=== PATIENT | female | born 1985 | race Caucasian/White ===

== ENCOUNTER 2020-06-23 17:36 | Emergency (ER) | payer OTHER, SELFPAY ==
[2020-06-23 18:53] VITALS: PULSE 74; RESP 18; TEMP 36.8; O2SAT 100; BMI 34.0
--- NOTE | 2020-06-23 19:15 | ED_ITS ---
HPI - General Adult General Chief complaint: Headache Stated complaint: no sense of taste, smell, headaches Time Seen by Provider: 06/23/20 18:22 Source: patient Mode of arrival: ambulatory History of Present Illness HPI narrative: Patient presents to ED for no sense of taste smell, body aches, and headache. Patient denies anyone else at home having similar symptoms. Patient states no coughing, chest pain, shortness of breath. Related Data Allergies Allergy/AdvReac Type Severity Reaction Status Date / Time No Known Allergies Allergy Unverified 05/02/20 18:33 Review of Systems Review of Systems: Yes all other systems are reviewed and are negative Constitutional: Constitutional: Reports body ache(s), Denies chills, Denies fever(s) and Reports headache(s) Comments: Loss of smell and loss of taste Eyes: Eyes: Reports as per HPI and Reports no additional eye complaints ENT: Reports system reviewed and no additional complaints, except as documented, Reports as per HPI and Reports headache(s) Cardiovascular: Cardiovascular: Reports as per HPI and Reports no additional cardiovascular complaints Respiratory: Respiratory: Reports as per HPI and Reports no additional respiratory complaints Gastrointestinal: Gastrointestinal: Reports as per HPI and Reports no additional gastrointestinal complaints Genitourinary: Genitourinary: Reports no additional female genitourinary complaints and Reports as per HPI Musculoskeletal: Musculoskeletal: Reports no additional musculoskeletal complaints and Reports as per HPI Neurologic: Reports system reviewed and no additional complaints, except as documented, Reports as per HPI and Reports headache(s) Psychiatric: Psychiatric: Reports no additional psychiatric complaints and Reports as per HPI [facility] Past Medical History Surgical History (Updated 06/23/20 @ 18:56 by Whitney Lyons) Hx of cholecystectomy Social History Social History Advance Directives: No Advance Directives Information Provided: Yes Physical Exam Vital Signs: Vital Signs: Last Vital Signs Temp 98.3 F 06/23/20 18:53 Pulse 74 06/23/20 18:53 Resp 18 06/23/20 18:53 Pulse Ox 100 06/23/20 18:53 Body Mass Index 34.0 Const: General: cooperative, healthy appearing, comfortable, no acute distress, well developed, alert and awake Orientation/consciousness: patient oriented x3 HENMT: Head: Yes normal to inspection and Yes No palpable skull fracture present Eyes: General: appearance normal, both eyes and all related structures Visual Gonzalez: normal visual gonzalez by confrontation Neck: Neck: Yes normal visual inspection, Yes full ROM, Yes no lymphadenopathy, Yes no meningeal signs and Yes trachea midline Chest: Chest palpation & inspection: normal inspection of the chest, normal palpation of entire chest wall and no localized rib tenderness Resp: Effort & Inspection: normal respiratory effort, able to speak in complete sentences and abnormal respiratory pattern Auscultation: clear to auscultation bilaterally, no crackles, no rales, no rhonchi and no wheezes Cardio: Jugular venous distension: no JVD Heart sounds: S1 normal heart sound present and S2 normal heart sound present GI: Inspection: Yes normal to inspection and No abdominal wall ecchymosis Palpation (GI): Soft to palpation, not firm, nontender, no guarding and not rigid : General: No CVA tenderness and Yes no CVA tenderness Back/Spine/Pelvis: Back: no CVA tenderness, No CVA tenderness and No back tenderness Skin: General skin exam: no rashes or lesions noted Neuro: General: patient oriented x3, gait normal, no meningeal signs and CN's II-XI intact bilaterally Cranial nerves: Yes CN's II-XII intact bilaterally Extrem: General: Yes normal to inspection and Yes full ROM Psych: Appearance: grossly normal and well kempt Course Course Course Narrative: History physical exam indicate viral syndrome. Patient was swabbed for COVID-19 virus. Reevaluation(s) Reevaluation #1: Patient is swabbed for the COVID-19 virus. Patient educated on self-isolation. Time: 19:21 Medical Decision Making [facility] Narrative Medical decision making narrative: COVID-19 Discharge Plan Discharge Clinical Impression: Acute viral syndrome Patient Disposition: Home, Self-Care Instructions: Viral Syndrome (ED) Additional Instructions: return to the ED immediately for any chest pain, shortness of breath, neck stiffness, photophobia, severe headache, intractable fever, chills, weakness, or any other concerning symptoms. Recommend 14 days self-isolation of COVID test come back positive. Please follow-up with the PCP Interventions: ED Discharge Assessment Last Done: 06/23/20 20:24 Discharge Date/Time: 06/23/20 20:26 Print Language: Turkmen
== END 2020-06-23 20:26 | disposition home or self-care (01) ==
PROVIDERS: Physician Assistant; Emergency Provider Emergency Medicine
DX: B34.9 Viral infection, unspecified (principal); R43.8 Other disturbances of smell and taste; R51.9 Headache, unspecified; Z20.828 Contact with and (suspected) exposure to other viral communicable diseases
CPT/HCPCS: 99283; U0003

== ENCOUNTER 2020-07-22 14:16 | Outpatient (REF) | payer OTHER, SELFPAY ==
[2020-07-23 09:22] LABS: BV Int Neg Control Negative (Negative); BV Int Pos Control Positive (Positive)
[2020-07-25 17:57] LABS: HPV mRNA E6/E7 rflx Not Detected (Not Detected)
== END 2020-07-22 14:17 | disposition home or self-care (01) ==
LOC: HO.LAB 14:16
PROVIDERS: Visit Provider Advanced Practice Midwife
DX: Z01.419 Encounter for gynecological examination (general) (routine) without abnormal findings (principal); N89.8 Other specified noninflammatory disorders of vagina; N64.4 Mastodynia; N92.6 Irregular menstruation, unspecified; Z86.018 Personal history of other benign neoplasm
CPT/HCPCS: 87480; 87510; 87624; 87625; 87660; 88142

== ENCOUNTER 2020-09-23 12:34 | Outpatient (REF) | payer OTHER, SELFPAY ==
--- NOTE | ~2020-09-23 | US_ITS ---
EXAMINATION: PELVIC ULTRASOUND CLINICAL INFORMATION: Pelvic and perineal pain COMPARISON: Previous pelvic ultrasound March [address] scan of the abdomen and pelvis August 2018 TECHNIQUE: Transabdominal and transvaginal pelvic ultrasound was performed. Transvaginal exam was performed for better visualization of the uterus and ovaries. FINDINGS: The uterus is anteverted and measures 8.7 x 5.2 x 6.4 cm in dimension. There is a hypoechoic lesion in the high posterior uterine body or lower fundus measures 2 x 2 x 1.7 cm suggestive of a fibroid. This is similar to previous exam. No other focal uterine lesion is seen. Endometrial thickness is normal measuring 1.1 cm. There are nabothian cysts in the cervix. The ovaries are normal-appearing. The right ovary measures 3.4 x 2.2 x 1.5 cm and the left ovary measures 3 x 1.6 x 1.7 cm. There is no fluid in the pelvis. US/US pelvic complete IMPRESSION: Small posterior uterine fibroid similar to previous exam.. Otherwise unremarkable exam.
--- NOTE | ~2020-09-23 | US_ITS ---
EXAMINATION: PELVIC ULTRASOUND CLINICAL INFORMATION: Pelvic and perineal pain COMPARISON: Previous pelvic ultrasound March [address] scan of the abdomen and pelvis August 2018 TECHNIQUE: Transabdominal and transvaginal pelvic ultrasound was performed. Transvaginal exam was performed for better visualization of the uterus and ovaries. FINDINGS: The uterus is anteverted and measures 8.7 x 5.2 x 6.4 cm in dimension. There is a hypoechoic lesion in the high posterior uterine body or lower fundus measures 2 x 2 x 1.7 cm suggestive of a fibroid. This is similar to previous exam. No other focal uterine lesion is seen. Endometrial thickness is normal measuring 1.1 cm. There are nabothian cysts in the cervix. The ovaries are normal-appearing. The right ovary measures 3.4 x 2.2 x 1.5 cm and the left ovary measures 3 x 1.6 x 1.7 cm. There is no fluid in the pelvis. US/US transvaginal IMPRESSION: Small posterior uterine fibroid similar to previous exam.. Otherwise unremarkable exam.
== END 2020-09-23 12:35 | disposition home or self-care (01) ==
LOC: HO.US 12:34
PROVIDERS: Visit Provider Advanced Practice Midwife
DX: R10.2 Pelvic and perineal pain (principal); Z86.018 Personal history of other benign neoplasm
CPT/HCPCS: 76830; 76856

== ENCOUNTER → 2020-10-01 15:24 | Outpatient (BNVA) | payer OTHER, SELFPAY | PROVIDERS: Visit Provider Advanced Practice Midwife ==

== ENCOUNTER 2021-11-17 14:13 | Outpatient (REF) | payer OTHER, SELFPAY ==
[2021-11-18 03:47] LABS: CT PCR NOT DETECTED (Not Detect.); NG PCR NOT DETECTED (Not Detect.)
[2021-11-18 15:27] LABS: BV Int Neg Control Negative (Negative); BV Int Pos Control Positive (Positive)
[2021-11-20 11:43] LABS: HPV mRNA E6/E7 rflx Not Detected (Not Detected)
== END 2021-11-17 14:14 | disposition home or self-care (01) ==
LOC: HO.LAB 14:13
PROVIDERS: Visit Provider Advanced Practice Midwife
DX: Z01.419 Encounter for gynecological examination (general) (routine) without abnormal findings (principal); Z11.51 Encounter for screening for human papillomavirus (HPV); Z20.2 Contact with and (suspected) exposure to infections with a predominantly sexual mode of transmission; Z98.890 Other specified postprocedural states
CPT/HCPCS: 87480; 87491; 87510; 87591; 87624; 87660; 88142

== ENCOUNTER 2021-11-19 08:54 | Outpatient (REF) | payer OTHER, SELFPAY ==
--- NOTE | ~2021-11-19 | US_ITS ---
EXAMINATION: MM DIAGNOSTIC DIGITAL BREAST TOMOSYNTHESIS, BILATERAL US DIAGNOSTIC ULTRASOUND BREAST, RIGHT CLINICAL INFORMATION: 36-year-old with chronic retroareolar pain right breast for one year. No discharge or palpable abnormality. No prior breast imaging. No known family history breast cancer. The lifetime risk of breast cancer based on the Tyrer-Cuzick Model is 9%. COMPARISON: None (current study represents initial baseline exam). TECHNIQUE: Digital breast tomosynthesis is performed in both the craniocaudal and mediolateral oblique views along with computer-aided detection (CAD). Synthesized 2D images are generated from the tomosynthesis. Additional spot right CC and spot right MLO views are obtained. Ultrasound right breast is targeted to the area of clinical concern retroareolar and circumferential periareolar right breast. Additional imaging also targeted to the posterior lateral right breast. Grayscale imaging and color Doppler are performed without and with harmonics. FINDINGS: There are scattered areas of fibroglandular density (ACR BI-RADS breast composition Category b). There is a oval nodule posterior 9:00 right breast measuring approximately 1.0 x 0.7 cm. Otherwise, there is no significant mass in either breast. No architectural abnormality or abnormal calcifications. The axilla and skin contours are unremarkable. No skin thickening or coarsening of the Andry's ligaments. Ultrasound right breast demonstrates a simple cyst 9:00 position 8 cm from nipple corresponding to the nodule on mammography and measuring 0.9 x 0.5 cm. There are also 2 tiny cysts periareolar 11:00 right breast, both under 4 mm. The cysts are anechoic and show increased through-transmission of sound with no color flow. There is no solid mass or architectural abnormality. No focal duct ectasia. No skin thickening or edema tracking in soft tissue planes. Results are discussed with the patient at time of visit, using an hourly sign language interpreter. US/US breast RT limited IMPRESSION: 1. No mammographic evidence of malignancy or inflammatory changes. 2. Incidental simple cyst posterior 9:00 right breast 0.9 cm and 2 tiny cysts periareolar right breast under 0.4 cm. ASSESSMENT: BI-RADS 2: Benign RECOMMENDATION: 1. Patient's chronic right breast pain should be managed based on the clinical impression. 2. Otherwise, routine annual mammography screening, beginning age 40, or earlier as clinical risk factors warrant. This patient's information was entered into a reminder system with a target due date for their next mammogram.
== END 2021-11-19 08:55 | disposition home or self-care (01) ==
LOC: HO.MAMMO 08:54
PROVIDERS: Visit Provider Advanced Practice Midwife
DX: N64.4 Mastodynia (principal)
CPT/HCPCS: 76642; 77062; 77066

== ENCOUNTER 2021-12-29 08:43 | Outpatient (REF) | payer OTHER, SELFPAY | END 2021-12-29 08:44 | disposition home or self-care (01) | LOC: HO.LAB 08:43 | PROVIDERS: PCP Nurse Practitioner Family; Visit Provider Obstetrics & Gynecology | DX: Z85.41 Personal history of malignant neoplasm of cervix uteri (principal) | CPT/HCPCS: 57454; 88300; 88305; 99212 ==

== ENCOUNTER → 2022-01-14 12:40 | Outpatient (BNVA) | payer OTHER, SELFPAY | PROVIDERS: PCP Nurse Practitioner Family; Visit Provider Obstetrics & Gynecology | DX: Z85.41 Personal history of malignant neoplasm of cervix uteri (principal); Z98.890 Other specified postprocedural states | CPT/HCPCS: 99212 ==

== ENCOUNTER 2022-04-22 09:23 | Emergency (ER) | payer OTHER, SELFPAY ==
[2022-04-22 10:11] VITALS: BP 130/67; PULSE 112; RESP 16; TEMP 37.1; O2SAT 99; BMI 32.9
[2022-04-22] MEDS: Acetaminophen 325 MG TABLET 650 MG PO (11:49)
[2022-04-22 12:14] LABS: IDNOW Serial# 08D9AD1C; Strep A Nucleic Acid Negative (Negative)
[2022-04-22 12:22] LABS: COVID-19 Test Negative (Negative); IDNOW Serial# 16C4AD1C
--- NOTE | 2022-04-22 19:28 | ED_ITS ---
HPI - General Adult General Chief complaint: General Medical Stated complaint: N/V/D Time Seen by Provider: 04/22/22 19:01 Source: patient Mode of arrival: ambulatory Limitations: no limitations History of Present Illness HPI narrative: 37-year-old female with no pertinent PMH presenting with nausea, vomiting, diar carmela , abdominal pain since yesterday. Reports multiple episodes of vomiting and diarrhea, and reports feeling she chills. Has only been drinking water and has vomited that. Describes the abdominal pain as crampy and diffuse. Denies any headache, dizziness, sore throat, cough, shortness of breath, chest pain, hematemesis, hematochezia, BRBPR. Denies any sick contacts. Patient reports LMP 2 weeks ago. MD complaint: Nausea/vomiting /diarrhea Onset (ago): day(s) Location: abdomen Radiation: abdomen Severity: moderate Severity scale (1-10): 5 Quality: other (crampy) Pain Consistency: constant Associated symptoms: fever/chills, loss of appetite and nausea/vomiting Related Data Previous Rx's Medication Instructions Recorded cyclobenzaprine 5 mg tablet 5 mg PO Q12H PRN muscle spasm #14 12/10/21 tabs ibuprofen 600 mg tablet 600 mg PO Q8H PRN pain #20 tabs 12/10/21 ondansetron 4 mg disintegrating 4 mg PO Q8H PRN nausea and 04/22/22 tablet vomiting #7 tabs Allergies Allergy/AdvReac Type Severity Reaction Status Date / Time No Known Allergies Allergy Verified 02/04/22 16:21 Review of Systems Review of Systems: Constitutional: No Fever, + Chills ENT/Mouth: No sore throat, No Rhinorrhea, No Swallowing Difficulty Eyes: No Eye Pain, No Swelling, No Redness Cardiovascular: No Chest Pain, No SOB, No Orthopnea, No Edema Respiratory: No Cough, No Sputum, No Wheezing, No dyspnea Gastrointestinal: + Nausea, + Vomiting, + Diarrhea, + abdominal Pain, No Hematochezia, No Melena Genitourinary: No Dysuria, No Urinary Frequency, No Hematuria Musculoskeletal: No joint pain, No Myalgias Skin: No Skin Lesions, No rash Neuro: No Weakness, No Numbness, No Dizziness, + Headache Psych: No Anxiety/Panic, No Depression Heme/Lymph: No Bruising, No Lymphadenopathy Endocrine: No Polyuria, No Polydipsia [facility] Past Medical History Medical History Cervical cancer, FIGO stage IA1 Encounter to establish care Hx of abnormal cervical Pap smear Lyme disease Surgical History History of cryosurgery Hx of section Hx of cholecystectomy Hx of tubal ligation Family History Family History Mother Hypertension Father No problems noted. Social History Social History Housing: Apartment Alcohol intake: current Alcohol intake frequency: a few times a month Patient Tobacco Use Status: Current everyday Tobacco user Cigarettes Per Day: 4 e-Cigarette/Vaping Use: Never Used Advance Directives: No Advance Directives Information Provided: No service: No Current occupational status: employed Current occupation: [employer] Sexual orientation: Straight/Heterosexual Cognitive needs: No Hearing needs: No Vision needs: No Physical Exam ED Vital Signs: Vital Signs - 24 hr 04/22/22 10:11 04/22/22 21:14 Temperature 98.8 F 97.7 F Pulse Rate 112 H 71 Respiratory Rate 16 18 Blood Pressure 130/67 100/51 L Pulse Oximetry 99 99 Oxygen Delivery Method Room Air Room Air BMI result Body Mass Index 32.9 Appearance: Alert. Oriented X3. No acute distress. Eyes: Pupils equal, round and reactive to light. ENT: Pharynx normal. Moist mucus membranes Neck: Normal inspection. Neck supple. CVS: Normal heart rate and rhythm. Pulses normal. Respiratory: No respiratory distress. Breath sounds normal. Abdomen: Soft and nontender. normal +BS x4 Skin: Skin warm and dry. Normal skin color. Normal skin turgor. No rashes. Extremities: No lower extremity edema. Neuro: Oriented X 3. Grossly normal, nonfocal. Course Course Course Narrative: 37-year-old female presenting with nausea, vomiting, diarrhea, abdominal pain since yesterday. On exam, patient alert oriented, in no acute distress, VSS, afebrile, mildly tender to palpation of abdomen diffusely. Reevaluation(s) Reevaluation #1: lab workup was unremarkable. She is feeling better after fluids and Zofran. Her urinalysis is not consistent with infection. She was given p.o. trial. Most likely gastroenteritis. Reevaluation #2: Tolerating p.o.. She is feeling better. She is stable for discharge home. Will give prescription for p.r.n. Zofran. Patient agrees with plan. Stable for DC. Medical Decision Making Lab Data Result diagrams: 04/22/22 19:44 04/22/22 19:44 Labs: Lab Results 04/22/22 04/22/22 04/22/22 Range/Units 11:41 11:42 19:44 WBC 9.7 (4.8-10.8) X10*3/uL RBC 4.23 (4.20-5.50) X10*6/uL Hgb 13.8 (12.0-16.0) g/dl Hct 41.5 (37.0-47.0) % MCV 98.1 H (80.0-98.0) fL MCH 32.6 (27.0-33.0) pg MCHC 33.3 (31.0-35.0) g/dl RDW 12.8 (11.0-16.0) % Plt Count 352 (160-400) X10*3/uL MPV 9.9 (9.4-12.3) fL Immature Gran % (Auto) 0.3 (0.0-0.4) % Neut % (Auto) 72.2 (45-73) % Lymph % (Auto) 18.6 L (20-40) % [place] % (Auto) 8.0 (2-11) % Eos % (Auto) 0.7 (0-4) % Baso % (Auto) 0.2 (0-2) % Lymph # (Auto) 1.8 (1.2-4.9) X10*3/uL [place] # (Auto) 0.8 (0.1-1.2) X10*3/uL Eos # (Auto) 0.1 (0.0-0.4) X10*3/uL Baso # (Auto) 0.0 (0.0-0.2) X10*3/uL Abs Immat Gran (auto) 0.03 (0.00-0.03) X10*3/uL Absolute Neuts (auto) 7.0 (2.0-8.3) x10*3/uL Absolute Nucleated RBC 0.000 (0.0-0.012) X10*3/uL Nucleated RBC % (auto) 0.0 (0.0-0.2) /100WBC Sodium (135-145) mmol/L Potassium (3.3-5.1) mmol/L Chloride (96-108) mmol/L Carbon Dioxide (22-29) mmol/L Anion Gap (12-20) BUN (9-16) mg/dL Creatinine (0.5-1.4) mg/dL Estim Creat Clear Calc Estimated GFR Random Glucose (60-115) mg/dL Calcium (8.4-10.2) mg/dL Magnesium (1.6-2.6) mg/dL Total Bilirubin (0.0-1.0) mg/dL Direct Bilirubin (0.0-0.5) mg/dL AST (5-31) U/L ALT (0-31) U/L Alkaline Phosphatase (39-117) U/L Total Protein (6.5-8.0) g/dL Albumin (3.5-5.0) g/dL Urine Color Urine Appearance Urine pH (5.0-9.0) Ur Specific [place] (1.005-1.025) Urine Protein (Neg-Trace) mg/dL Urine Glucose (UA) (Negative) mg/dL Urine Ketones (Negative) mg/dL Urine Blood (Negative) Urine Nitrite (Negative) Ur Leukocyte Esterase (Negative) Urine RBC (0-2) /HPF Urine WBC (0-5) /HPF Ur Squamous Epith Cells (0-2) /HPF Urine Bacteria (None Seen) Hyaline Casts (0-2) /LPF COVID-19 (KEZIA) Negative (Negative) COVID-19 Clin Com See Note S. pyogenes GrpA CAYLA Negative (Negative) 04/22/22 04/22/22 Range/Units 19:44 21:33 WBC (4.8-10.8) X10*3/uL RBC (4.20-5.50) X10*6/uL Hgb (12.0-16.0) g/dl Hct (37.0-47.0) % MCV (80.0-98.0) fL MCH (27.0-33.0) pg MCHC (31.0-35.0) g/dl RDW (11.0-16.0) % Plt Count (160-400) X10*3/uL MPV (9.4-12.3) fL Immature Gran % (Auto) (0.0-0.4) % Neut % (Auto) (45-73) % Lymph % (Auto) (20-40) % [place] % (Auto) (2-11) % Eos % (Auto) (0-4) % Baso % (Auto) (0-2) % Lymph # (Auto) (1.2-4.9) X10*3/uL [place] # (Auto) (0.1-1.2) X10*3/uL Eos # (Auto) (0.0-0.4) X10*3/uL Baso # (Auto) (0.0-0.2) X10*3/uL Abs Immat Gran (auto) (0.00-0.03) X10*3/uL Absolute Neuts (auto) (2.0-8.3) x10*3/uL Absolute Nucleated RBC (0.0-0.012) X10*3/uL Nucleated RBC % (auto) (0.0-0.2) /100WBC Sodium 139 (135-145) mmol/L Potassium 3.7 (3.3-5.1) mmol/L Chloride 101 (96-108) mmol/L Carbon Dioxide 27 (22-29) mmol/L Anion Gap 15 (12-20) BUN 6 L (9-16) mg/dL Creatinine 0.70 (0.5-1.4) mg/dL Estim Creat Clear Calc 107.9 Estimated GFR > 60 Random Glucose 85 (60-115) mg/dL Calcium 9.0 (8.4-10.2) mg/dL Magnesium 1.9 (1.6-2.6) mg/dL Total Bilirubin 1.2 H (0.0-1.0) mg/dL Direct Bilirubin 0.4 (0.0-0.5) mg/dL AST 17 (5-31) U/L ALT 17 (0-31) U/L Alkaline Phosphatase 103 (39-117) U/L Total Protein 7.6 (6.5-8.0) g/dL Albumin 4.2 (3.5-5.0) g/dL Urine Color Yellow Urine Appearance Clear Urine pH 6.0 (5.0-9.0) Ur Specific [place] <= 1.005 (1.005-1.025) Urine Protein Negative (Neg-Trace) mg/dL Urine Glucose (UA) Negative (Negative) mg/dL Urine Ketones Trace (Negative) mg/dL Urine Blood Negative (Negative) Urine Nitrite Negative (Negative) Ur Leukocyte Esterase Trace H (Negative) Urine RBC 3-5 H (0-2) /HPF Urine WBC 0-5 (0-5) /HPF Ur Squamous Epith Cells 6-10 (0-2) /HPF Urine Bacteria 4+ (None Seen) Hyaline Casts 0-2 (0-2) /LPF COVID-19 (KEZIA) (Negative) COVID-19 Clin Com S. pyogenes GrpA CAYLA (Negative) Critical Care Time Critical Care Time Critical Care Time: No Discharge Plan Discharge Clinical Impression: Gastroenteritis Patient Disposition: Home, Self-Care Instructions: Gastroenteritis (ED) Additional Instructions: You lab workup today was unremarkable. Your urine test was negative for infection and . You most likely have a viral GI bug also known as gastroenteritis. Treatment is supportive care, symptoms usually resolve on their own in 48-72 hours. Recommend rest and plenty of oral hydration. Stick to a bland diet like soup and toast while you are not feeling well. Take the prescribed medication as needed for nausea. Recommend over the counter Pepto Bismol or Imodium for upset stomach and diarrhea. Follow up with your doctor as needed. If you develop new or worsening symptoms call 911 or come back to the ER for further evaluation. Prescriptions: New ondansetron 4 mg tablet,disintegrating 4 mg PO Q8H PRN (Reason: nausea and vomiting) Qty: 7 0RF No Action cyclobenzaprine 5 mg tablet 5 mg PO Q12H PRN (Reason: muscle spasm) Qty: 14 0RF ibuprofen 600 mg tablet 600 mg PO Q8H PRN (Reason: pain) Qty: 20 0RF
[2022-04-22 19:50] LABS: MANUAL DIFF FLAG NO
[2022-04-22 19:52] LABS: Basophils Percent Auto 0.2 % (0-2); Eosinophils Absolute Auto 0.1 X10*3/uL (0.0-0.4); Eosinophils Percent Auto 0.7 % (0-4); Hematocrit 41.5 % (37.0-47.0); Hemoglobin 13.8 g/dl (12.0-16.0); Imm Gran Abs Auto 0.03 X10*3/uL (0.00-0.03); Imm Gran Pct Auto 0.3 % (0.0-0.4); Lymphocytes Absolute Auto 1.8 X10*3/uL (1.2-4.9); Lymphocytes Percent Auto 18.6 % (20-40); Mean Corpuscular HGB Conc 33.3 g/dl (31.0-35.0); Mean Corpuscular Hemoglobin 32.6 pg (27.0-33.0); Mean Corpuscular Volume 98.1 fL (80.0-98.0); Mean Platelet Volume 9.9 fL (9.4-12.3); Monocytes Absolute Auto 0.8 X10*3/uL (0.1-1.2); Neutrophils Percent Auto 72.2 % (45-73); Platelet Count 352 X10*3/uL (160-400); Red Blood Count 4.23 X10*6/uL (4.20-5.50); Red Cell Distribution Width 12.8 % (11.0-16.0); White Blood Count 9.7 X10*3/uL (4.8-10.8)
[2022-04-22] MEDS: 0.9 % Sodium Chloride 1,000 ML 999 ML IVCONT (19:59)
[2022-04-22] MEDS: ondansetron HCL 4 MG/2 ML VIAL IVPUSH (19:59)
[2022-04-22 20:08] LABS: Alanine Aminotransferase 17 U/L (0-31); Albumin Level 4.2 g/dL (3.5-5.0); Alkaline Phosphatase 103 U/L (39-117); Anion Gap 15 (12-20); Aspartate Amino Transferase 17 U/L (5-31); Bilirubin Direct 0.4 mg/dL (0.0-0.5); Bilirubin Total 1.2 mg/dL (0.0-1.0); Blood Urea Nitrogen 6 mg/dL (9-16); Carbon Dioxide 27 mmol/L (22-29); Chloride 101 mmol/L (96-108); Creatinine Clr Calc Pharmacy 107.9; Estimated Glomerular Filt Rate > 60; Glucose Random 85 mg/dL (60-115); Magnesium 1.9 mg/dL (1.6-2.6); Potassium 3.7 mmol/L (3.3-5.1); Sodium 139 mmol/L (135-145); Total Protein 7.6 g/dL (6.5-8.0)
[2022-04-22 21:14] VITALS: BP 100/51; PULSE 71; RESP 18; TEMP 36.5; O2SAT 99
[2022-04-22 21:36] LABS: Appearance Urine Clear; Color Urine Yellow; Glucose Urine UA Negative (Negative); Leukocyte Esterase Urine Trace (Negative); Nitrite Urine Negative (Negative); Specific Gravity - Urine <= 1.005 (1.005-1.025); Urine Blood Negative (Negative); Urine Ketones Trace mg/dL (Negative); Urine Protein Negative (Neg-Trace)
[2022-04-22 21:40] LABS: Bacteria Urine 4+ (None Seen); Hyaline Casts Urine 0-2 /LPF (0-2); WBC Urine 0-5 /HPF (0-5)
[2022-04-22] MEDS: Lidocaine HCl Viscous 2 % 15 ML SOLUTION MUCOUS MEM (21:49)
[2022-04-22] MEDS: PHENobarb/Hyoscy/Atropine/Scop 10 ML ELIXIR PO (21:49)
[2022-04-22] MEDS: Magnesium Hydrox/Alum Hydrox 30 ML ORAL.SUSP PO (21:49)
== END 2022-04-22 23:07 | disposition home or self-care (01) ==
PROVIDERS: Physician Assistant; Emergency Provider Emergency Medicine; PCP Nurse Practitioner Family
DX: K52.9 Noninfective gastroenteritis and colitis, unspecified (principal); Z20.822 Contact with and (suspected) exposure to COVID-19; R11.2 Nausea with vomiting, unspecified; R51.9 Headache, unspecified; F17.210 Nicotine dependence, cigarettes, uncomplicated
CPT/HCPCS: 36415; 80048; 80076; 81001; 83735; 85025; 87635; 87651; 96361; 96374; 99283; 99284; J2405

== ENCOUNTER → 2022-09-14 14:50 | Outpatient (BNVA) | payer OTHER, SELFPAY | PROVIDERS: PCP Nurse Practitioner Family; Visit Provider Physician Assistant Surgical | DX: Z13.89 Encounter for screening for other disorder (principal) ==

== ENCOUNTER 2022-10-26 09:07 | Outpatient (REF) | payer OTHER, SELFPAY ==
--- NOTE | ~2022-10-26 | XR_ITS ---
EXAMINATION: XR lumbar spine 2-3V CLINICAL INFORMATION: Reason for Exam M54.50 - Low back pain, unspecified COMPARISON: Lumbar spine radiographs 09/12/2018 TECHNIQUE: 3 views of the lumbar spine FINDINGS: 5 nonrib-bearing lumbar-type vertebral bodies. Vertebral body heights are maintained. Grade 1 anterolisthesis of L5 on S1. Disc space heights are maintained. Right upper quadrant cholecystectomy clips. XR/XR lumbar spine 2-3V IMPRESSION: 1. Grade 1 anterolisthesis of L5 on S1. 2. No significant spondylosis.
--- NOTE | ~2022-10-26 | XR_ITS ---
EXAMINATION: XR SHOULDER, RIGHT CLINICAL INFORMATION: Right shoulder pain COMPARISON: None TECHNIQUE: AP external rotation, Grashey, scapular Y, and axillary views of the right shoulder. FINDINGS: The bones and soft tissues are normal. No fracture. Glenohumeral and acromioclavicular alignment is anatomic with normal joint space. No abnormal soft tissue calcifications. XR/XR shoulder RT min 2V IMPRESSION: Normal right shoulder.
[2022-10-26 09:18] LABS: MANUAL DIFF FLAG NO
[2022-10-26 09:55] LABS: Basophils Percent Auto 0.6 % (0-2); Eosinophils Absolute Auto 0.1 X10*3/uL (0.0-0.4); Hematocrit 37.3 % (37.0-47.0); Hemoglobin 12.5 g/dl (12.0-16.0); Imm Gran Abs Auto 0.02 X10*3/uL (0.00-0.03); Imm Gran Pct Auto 0.3 % (0.0-0.4); Lymphocytes Absolute Auto 2.3 X10*3/uL (1.2-4.9); Lymphocytes Percent Auto 31.7 % (20-40); Mean Corpuscular HGB Conc 33.5 g/dl (31.0-35.0); Mean Corpuscular Hemoglobin 32.8 pg (27.0-33.0); Mean Corpuscular Volume 97.9 fL (80.0-98.0); Monocytes Absolute Auto 0.6 X10*3/uL (0.1-1.2); Neutrophils Absolute Auto 4.1 x10*3/uL (2.0-8.3); Neutrophils Percent Auto 57.4 % (45-73); Platelet Count 345 X10*3/uL (160-400); Red Blood Count 3.81 X10*6/uL (4.20-5.50); Red Cell Distribution Width 13.2 % (11.0-16.0); White Blood Count 7.1 X10*3/uL (4.8-10.8)
[2022-10-26 11:43] LABS: Alanine Aminotransferase 12 U/L (0-31); Alkaline Phosphatase 86 U/L (39-117); Anion Gap 10 (12-20); Aspartate Amino Transferase 14 U/L (5-31); Bilirubin Total 0.9 mg/dL (0.0-1.0); Blood Urea Nitrogen 10 mg/dL (9-16); Calcium 8.5 mg/dL (8.4-10.2); Carbon Dioxide 26 mmol/L (22-29); Chloride 108 mmol/L (96-108); Cholesterol 166 mg/dL; Estimated Glomerular Filt Rate > 60; Glucose Fasting 93 mg/dL (60-99); HDL Cholesterol 46 mg/dL; LDL Cholesterol Calculated 107 mg/dl; Potassium 4.4 mmol/L (3.3-5.1); Sodium 140 mmol/L (135-145); Total Protein 6.9 g/dL (6.5-8.0); Triglycerides 66 mg/dL
[2022-10-26 12:18] LABS: Folate 10.2 ng/mL (> or = 4.0); TSH reflex Free T4 1.33 uIU/mL (0.32-4.0); Vitamin B12 297 pg/mL (200-900); Vitamin D 25-OH Total 6.8 ng/mL (>30)
== END 2022-10-26 09:08 | disposition home or self-care (01) ==
LOC: HO.LAB 09:07
PROVIDERS: PCP Nurse Practitioner Family; Visit Provider Nurse Practitioner Family
DX: Z13.29 Encounter for screening for other suspected endocrine disorder (principal); Z76.89 Persons encountering health services in other specified circumstances; Z13.220 Encounter for screening for lipoid disorders; M54.50 Low back pain, unspecified; M25.511 Pain in right shoulder
CPT/HCPCS: 36415; 72100; 73030; 80053; 80061; 82306; 82607; 82746; 84443; 85025

== ENCOUNTER 2022-12-26 08:25 | Emergency (ER) | payer OTHER, SELFPAY ==
[2022-12-26 08:29] VITALS: BP 125/63; PULSE 92; RESP 18; TEMP 36.6; O2SAT 98; BMI 37.8
--- NOTE | 2022-12-26 08:52 | ED_ITS ---
HPI - Eye Problem General Chief complaint: Eye Problems Stated complaint: eyelid issue Time Seen by Provider: 12/26/22 08:44 Source: patient Mode of arrival: ambulatory Limitations: no limitations History of Present Illness HPI Narrative: 37-year-old female came in for evaluation of left upper eyelid swelling and redness. Patient is known to have bilateral eyelid stye, woke up this morning with pain in the left upper eyelid with redness and more swelling of the thigh. Related Data Previous Rx's Medication Instructions Recorded cyclobenzaprine 5 mg tablet 5 mg PO Q12H PRN muscle spasm #14 12/10/21 tabs ibuprofen 600 mg tablet 600 mg PO Q8H PRN pain #20 tabs 12/10/21 ondansetron 4 mg disintegrating 4 mg PO Q8H PRN nausea and 04/22/22 tablet vomiting #7 tabs metronidazole 0.75 % topical cream 1 appl topical DAILY 14 days #45 10/06/22 grams polymyxin B sulfate 10,000 1 drp ophthalmic (eye) Q4H 7 days 10/06/22 unit-trimethoprim 1 mg/mL eye drops #10 mL cholecalciferol (vitamin D3) 50 50 mcg PO DAILY #90 tabs 11/03/22 mcg (2,000 unit) tablet erythromycin 5 mg/gram (0.5 %) eye 0.5 inch ophthalmic (eye) QID #50 12/26/22 ointment grams Allergies Allergy/AdvReac Type Severity Reaction Status Date / Time No Known Allergies Allergy Verified 10/06/22 15:51 Review of Systems Review of Systems: All other systems are reviewed and are negative Constitutional: Reports as per HPI and Reports no additional constitutional complaints Eyes: Reports as per HPI and Reports no additional eye complaints Reports system reviewed and no additional complaints, except as documented Cardiovascular: Reports as per HPI and Reports no additional cardiovascular complaints Respiratory: Reports as per HPI and Reports no additional respiratory complaints Gastrointestinal: Reports as per HPI and Reports no additional gastrointestinal complaints Genitourinary: Reports no additional female genitourinary complaints Musculoskeletal: Reports no additional musculoskeletal complaints Skin/Breast: Reports system reviewed and no additional complaints, except as docu Psychiatric: Reports no additional psychiatric complaints Endocrine: Reports no additional endocrine complaints Hematologic/Lymphatic: Reports no additional hematologic/lymphatic complaints Allergic/Immunologic: Reports no additional allergic/immunologic complaints Reports system reviewed and no additional complaints, except as documented and Reports Abnormal speech present PMFSH Past Medical History Medical History Cervical cancer, FIGO stage IA1 Encounter to establish care Hx of abnormal cervical Pap smear Lyme disease Surgical History H/O LEEP History of cryosurgery Hx of section Hx of cholecystectomy Hx of tubal ligation Family History Family History Mother Hypertension Father No problems noted. Social History Social History Housing: Apartment Alcohol intake: current Alcohol intake frequency: a few times a month Patient Tobacco Use Status: Current everyday Tobacco user Cigarettes Per Day: 4 e-Cigarette/Vaping Use: Never Used Advance Directives: No Advance Directives Information Provided: No service: No Current occupational status: employed Current occupation: [employer] Sexual orientation: Straight/Heterosexual Cognitive needs: No Hearing needs: No Vision needs: No Physical Exam Vital Signs: Vital Signs: Last Vital Signs Temp 98 F 12/26/22 08:29 Pulse 92 12/26/22 08:29 Resp 18 12/26/22 08:29 BP 125/63 12/26/22 08:29 Pulse Ox 98 12/26/22 08:29 O2 Del Method Room Air 12/26/22 08:29 BMI result Body Mass Index 37.8 Vital signs have been reviewed as appeared to be correct. Blood pressure normal. Heart rate normal. Respiration rate normal. Temperature normal. Oxygen saturation normal. Appearance: Alert. Oriented X3. No acute distress. Head: Normal external exam. Normocephalic. Atraumatic. No Dhillon signs noted. No raccoon eyes noted Eyes: PERRLA. EOMI. Conjunctiva and sclera normal. Left upper eyelid with redness swelling of the lateral aspect of the eyelid. ENT: TM's Normal. Pharynx normal. Uvula midline. Moist mucous membranes. No trismus noted. No drooling noted. No muffled voice noted. Neck: Normal inspection. Neck supple. FROM. No adenopathy. Thyroid Normal. No meningeal signs. No neck mass noted. CVS: Normal heart rate and rhythm. Heart sound normal. No murmurs noted. Pulses normal throughout. Respiratory: No respiratory distress. Painless inspiration. Breath sounds normal. No wheezes/rales/rhonchi noted. Chest nontender. No accessory muscle usage noted or decreased air movement noted. Abdomen: Soft and nontender. Bowel sounds normal in all 4 quadrants. No distention noted. No organomegaly noted. No visible injury noted. Back: No CVA tenderness. Full range of motion noted. Skin: Skin warm and dry. Normal skin color. Normal skin turgor. No rashes/lesions/lacerations noted. Extremities: No lower extremity edema. Extremities exhibit normal range of motion. Extremities nontender. Neuro: Oriented X 3. Cranial nerve exam: II-XII are grossly intact No motor deficit. No sensory deficit. Reflexes normal. 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 Medical Decision Making Differential Diagnosis Differential Diagnoses: The differential diagnosis associated with the presentation includes (Chalazion, infected stye) Discharge Plan Discharge Clinical Impression: Hordeolum externum left upper eyelid Patient Disposition: Home, Self-Care Instructions: Stye (ED) Prescriptions: New erythromycin 5 mg/gram (0.5 %) ointment 0.5 inch ophthalmic (eye) QID Qty: 50 0RF No Action cholecalciferol (vitamin D3) 50 mcg (2,000 unit) tablet 50 mcg PO DAILY Qty: 90 0RF ondansetron 4 mg tablet,disintegrating 4 mg PO Q8H PRN (Reason: nausea and vomiting) Qty: 7 0RF cyclobenzaprine 5 mg tablet 5 mg PO Q12H PRN (Reason: muscle spasm) Qty: 14 0RF ibuprofen 600 mg tablet 600 mg PO Q8H PRN (Reason: pain) Qty: 20 0RF polymyxin B sulf-trimethoprim 10,000 unit- 1 mg/mL drops 1 drp ophthalmic (eye) Q4H 7 Days Qty: 10 0RF Rx Instructions: while awake; do not exceed 6 doses in 24 hours metronidazole 0.75 % cream 1 appl topical DAILY 14 Days Qty: 45 0RF Referrals: Edwin Jang [Physician] - Stand Alone Forms: Work/School Release
[2022-12-26 09:21] VITALS: BP 113/79; PULSE 74; RESP 16; TEMP 36.8; O2SAT 100
--- NOTE | 2022-12-26 09:25 | PC.NURSE ---
Patient presenting with upper eye redness. Uponn inspection patient has a swollen red area to the upper left eye lid. Patient was given erythromycin ointment for this and taught how to administer medication to herself.
[2022-12-26] MEDS: Erythromycin Base 0.5% Oph Oin 1 GM TUBE 1 CM EYE-LEFT (09:26)
== END 2022-12-26 09:29 | disposition home or self-care (01) ==
PROVIDERS: Emergency Provider Emergency Medicine; PCP Nurse Practitioner Family
DX: H00.014 Hordeolum externum left upper eyelid (principal)
CPT/HCPCS: 99283

== ENCOUNTER 2023-03-12 13:46 | Outpatient (REF) | payer OTHER, SELFPAY ==
[2023-03-12 18:42] LABS: CT PCR NOT DETECTED (Not Detect.); NG PCR NOT DETECTED (Not Detect.)
[2023-03-13 14:35] LABS: BV Int Neg Control Negative (Negative); BV Int Pos Control Positive (Positive)
[2023-03-19 06:10] LABS: HPV mRNA E6/E7 rflx Not Detected (Not Detected)
== END 2023-03-12 13:47 | disposition home or self-care (01) ==
LOC: HO.LNP 13:46
PROVIDERS: PCP Nurse Practitioner Family; Visit Provider Advanced Practice Midwife
DX: Z01.419 Encounter for gynecological examination (general) (routine) without abnormal findings (principal); Z11.51 Encounter for screening for human papillomavirus (HPV); N92.6 Irregular menstruation, unspecified
CPT/HCPCS: 0353U; 87480; 87510; 87624; 87660; 88142

== ENCOUNTER 2023-03-12 13:46 | Outpatient (AMB) | payer OTHER, SELFPAY ==
--- NOTE | 2023-03-12 13:50 | A.OFFVIS_ITS ---
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: Yes Pump And Blower Operator Language: Kinyarwanda Information Interpreted: non-clinical & clinical Jewelry Bearing Maker: Jewelry Bearing Maker Present (Aidyn) Allergies No Known Allergies Allergy (Verified 03/12/23 13:53) Medication List - Last Reconciled 03/12/23 by Melania Chadwick CNM cholecalciferol (vitamin D3) 50 mcg PO DAILY cyclobenzaprine 5 mg PO Q12H PRN erythromycin 0.5 inches ophthalmic (eye) QID erythromycin 0.5 inches ophthalmic (eye) QID ibuprofen 600 mg PO Q8H PRN polymyxin B sulf-trimethoprim 10,000 unit- 1 mg/mL 1 drp ophthalmic (eye) Q4H 7 days Is last menstrual period known: Yes Last menstrual period: 03/01/23 Post menopausal: No 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 She has noticed that usually she has normal heavy regular periods but in the last 2 months they have been a much supervisor phosphoric acid and just very light bleeding for a couple of days. She does not mind not having it. But she wants to check out the whether not it is okay she does think she has gained weight over time. She is not really worried about STIs but accepts testing with the Pap smear but declines blood work as not necessary today. She has her primary care provider within the system. She has referral to see some eye doctor in [place] to talk about getting the growths on her eyelid is removed but the appointment is and not until May right now the growths are not inflamed but they are always bothersome and she would like them removed. She has had her tubes tied so does not need to worry about contraception. She has a history of fibroids noted in the past that were small and she would not mind having an ultrasound to check on things make sure they are not growing make sure everything is okay because of the periods changing Her breasts have been feeling fine since she had an evaluation last year for 1 breast being tender. She was told that everything was okay when she went for her follow-up. [facility] Medical History (Updated 03/12/23 @ 15:02 by Melania Chadwick CNM) Cervical cancer, FIGO stage IA1 Encounter to establish care Hx of abnormal cervical Pap smear Lyme disease Surgical History H/O LEEP History of cryosurgery Hx of section Hx of cholecystectomy Hx of tubal ligation Family History Mother Hypertension Father No problems noted. Social History (Updated 03/12/23 @ 13:56 by ANIYA Noguera) Housing: Apartment Alcohol intake: current Alcohol intake frequency: holidays/special occasions only Patient Tobacco Use Status: Current everyday Tobacco user Cigarettes Per Day: 4 e-Cigarette/Vaping Use: Never Used service: No Current occupational status: employed Current occupation: [employer] Sexual orientation: Straight/Heterosexual Cognitive needs: No Hearing needs: No Vision needs: No Female Reproductive History Menstrual Age of Menarche: 8 Duration of menses: <3 days Date of last menstrual period: 03/01/23 control method: other (tubal ligation) Total pregnancies: 5 Full term: 4 Number of Living Children: 4 Ab spontaneous: 1 Date of last pap smear: 11/18/21 (negative) History of abnormal pap smear: Yes Physical Exam Vital Signs: Last Vital Signs BP 126/82 03/12/23 13:51 BMI result Body Mass Index 38.9 Const General: healthy appearing, comfortable, no acute distress, well developed and alert Nutritional Appearance: average body habitus Orientation/consciousness: patient oriented x3 Limitations: no limitations HEENT Head: Yes normocephalic Eyes Other: Patient has pedunculated growth on both eyelids left significantly larger than right. Eyes/upper lids images: 1. Growths on eyelid 2. Growths on eyelid Neck Neck: Yes normal visual inspection Chest Chest palpation & inspection: normal inspection of the chest Breast/axilla inspection: normal inspection of the breasts and normal inspection of the axillae Breast/axilla palpation: normal palpation of the breasts and normal palpation of the axillae Resp Effort & Inspection: normal respiratory effort GI Inspection: Yes normal to inspection, No Abdominal wall edema and No distended Palpation (GI): Soft to palpation and nontender Other: Patient does have large flattened growth on mons pubis that she says has been b urned often past but just came back. Vagina pink and moist cervix parous with tiny os consistent with LEEP clear fertile type mucus. Uterus small midposition nontender good tone with Kegel adnexa nontender General: Yes bladder normal to palpation External Female Exam: normal external appearance and normal appearance of the urethra Speculum Exam - Vagina: normal appearance of the vagina, normal palpation and normal vaginal discharge Speculum Exam - Cervix: normal appearance of the cervix, normal palpation and nontender Bimanual exam- vagina & uterus: normal bimanual exam, normal palpation, uterine size normal, bladder normal to palpation, consistency normal, normal palpation, uterine mobility normal, uterine shape normal, No Cervical tenderness present, non-tender and no cervical motion tenderness Bimanual Exam- Adnexa, other: normal adnexae, no masses, normal and No adnexal tenderness Neuro General: patient oriented x3 Results Reviewed Results Reviewed: Patient: Trina Campbell MR#: [id number] : 1985 Acct:[id number] Age/Sex: 35 / F ADM Date: 09/23/20 Loc: HO. Attending Dr: Zena San CNM Ordering Physician: Zena San CNM Date of Service: 09/23/20 Procedure(s): US transvaginal Accession Number(s): [id number] cc: Zena San CNM~ EXAMINATION: PELVIC ULTRASOUND CLINICAL INFORMATION: Pelvic and perineal pain? COMPARISON: Previous pelvic ultrasound March [address] scan of the abdomen and pelvis August 2018? TECHNIQUE: Transabdominal and transvaginal pelvic ultrasound was performed. Transvaginal exam was performed for better visualization of the uterus and ovaries.? FINDINGS: The uterus is anteverted and measures 8.7 x 5.2 x 6.4 cm in dimension. There is a hypoechoic lesion in the high posterior uterine body or lower fundus measures 2 x 2 x 1.7 cm suggestive of a fibroid. This is similar to previous exam. No other focal uterine lesion is seen. Endometrial thickness is normal measuring 1.1 cm. There are nabothian cysts in the cervix. The ovaries are normal-appearing. The right ovary measures 3.4 x 2.2 x 1.5 cm and the left ovary measures 3 x 1.6 x 1.7 cm. There is no fluid in the pelvis. US/US transvaginal IMPRESSION: Small posterior uterine fibroid similar to previous exam.. Otherwise unremarkable exam.? Dictated By: KALIA SINGLETON MD Signed By: <Electronically signed by KALIA SINGLETON MD in OV> 09/23/20 1653 DD/ 1238 TD/TT:? Vulcan Crewmember: MEGHANN Assessment & Plan Assessment & Plan (1) H/O LEEP: Comment: 02/25 Pap LSIL 2 Pap high-grade HARESH, colpo/biopsy GEORGE 1 09/30 Pap smear negative 03/31 Pap high-grade HARESH/HPV positive, colpo/biopsy GEORGE 1, LEEP GEORGE 3 superficial invasive squamous cell carcinoma 09/01 Pap smear/HPV negative, colpo biopsy ASCUS 04/03 Pap/HPV negative 08/04 co testing negative 12/05 co testing negative Code(s): Z98.890 - Other specified postprocedural states (2) Potential exposure to STD: Code(s): Z20.2 - Contact with and (suspected) exposure to infections with a predominantly sexual mode of transmission (3) History of uterine fibroid: Code(s): Z86.018 - Personal history of other benign neoplasm (4) Encounter for gynecological examination with Papanicolaou smear of cervix: Code(s): Z01.419 - Encounter for gynecological examination (general) (routine) without abnormal findings (5) Cervical cancer, FIGO stage IA1: Code(s): C53.9 - Malignant neoplasm of cervix uteri, unspecified (6) History of cervical cancer: Comment: Stage a 1 in 2017 with less than 1 mm from endocervical margin and less than 1 mm greater dimension and depths since then multiple negative co testing Code(s): Z85.41 - Personal history of malignant neoplasm of cervix uteri (7) Irregular menstruation, unspecified: Code(s): N92.6 - Irregular menstruation, unspecified Plan -----Discussed in this visit the following: healthy balanced diet, regular and consistent exercise, getting recommended health screens, doing the best she can for her particular health concerns, kegel exercises, pap smear screening and followup recommendations, mammography screening and SBE, normal changes in cycles in her life stage--- . Reviewed past visits and follow-up Pap smear was done and we will send her a letter if it is normal and call her if there is anything abnormal. Testing for gonorrhea chlamydia trichomoniasis Gardnerella and yeast was also done her cervical discharge appears extremely clear and healthy and consistent with midcycle. Her cervix appeared very clear and pink and healthy status post LEEP. Ultrasound offer to check on the fibroid situation on also given the issue of her menstrual periods kind of changing. Discussed the possible relationship to weight gain and increased levels of hormones leading to an ovulatory cycles and therefore supervisor phosphoric acid or missing periods and then episodes of hemorrhaging/menorrhagia with irregular cycles. Discussed the possibility of prevention of this problem with use of a Mirena IU S but discussed that we would want a place it with her menses. Also discussed that the concern for missing periods over time is that the lining of the uterus could buildup and sometimes this leads to abnormal cells in the lining of the uterus which is not good. Discussed that if she ever does miss her. Completely for 3 months she should call and be seen and we would want to give her medication to bring her period On, and it would be expected to be a heavy period. I am ordering an ultrasound and we will for follow-up after that ultrasound. And I also gave her information about the Mirena IU S for her to consider, to deal with cycle management in general. I wished her luck with her eye surgery. Orders: Orders US pelvic and transvaginal Today C53.9 - Malignant neoplasm of cervix uteri, unspecified, N92.6 - Irregular menstruation, unspecified, Z01.419 - Encounter for gynecological examination (general) (routine) without abnormal findings, Z85.41 - Personal history of malignant neoplasm of cervix uteri, Z86.018 - Personal history of other benign neoplasm Bacterial Vaginosis Panel Today Z01.419 - Encounter for gynecological examination (general) (routine) without abnormal findings CT NG by PCR Today Z01.419 - Encounter for gynecological examination (general) (routine) without abnormal findings Pap Smear Today Z01.419 - Encounter for gynecological examination (general) (routine) without abnormal findings Coding Level of Care Code Est Pt Prev Care [id number]) Diagnoses H/O LEEP Z98.890 Potential exposure to STD Z20.2 History of uterine fibroid Z86.018 Encounter for gynecological examination with Papanicolaou smear of cervix Z01.419 Cervical cancer, FIGO stage IA1 C53.9 History of cervical cancer Z85.41 Irregular menstruation, unspecified N92.6
[2023-03-12 13:51] VITALS: BP 126/82; BMI 38.9
== END 2023-03-12 15:02 | disposition home or self-care (01) ==
LOC: HO.HWS 13:46
PROVIDERS: PCP Nurse Practitioner Family; Visit Provider Advanced Practice Midwife
DX: Z01.419 Encounter for gynecological examination (general) (routine) without abnormal findings (principal); Z98.890 Other specified postprocedural states; Z20.2 Contact with and (suspected) exposure to infections with a predominantly sexual mode of transmission; Z86.018 Personal history of other benign neoplasm; C53.9 Malignant neoplasm of cervix uteri, unspecified; Z85.41 Personal history of malignant neoplasm of cervix uteri; N92.6 Irregular menstruation, unspecified
CPT/HCPCS: 99395

== ENCOUNTER 2023-04-05 12:50 | Outpatient (REF) | payer OTHER, SELFPAY ==
--- NOTE | ~2023-04-05 | US_ITS ---
EXAMINATION: US PELVIS CLINICAL INFORMATION: Malignant neoplasm of cervix, last menstrual period one week ago, vaginal bleeding. COMPARISON: 10/03/2020. TECHNIQUE: Ultrasound of the pelvis is performed using both transabdominal and transvaginal transducers along with Doppler. Transvaginal imaging is performed due to inadequate visualization transabdominally. FINDINGS: Uterus: The uterus is anteverted and measures 8.3 x 5.0 x 6.7 cm. There is a 2.2 x 1.6 x 1.9 cm posterior fibroid previously measured 2 x 2 x 1.7 cm. Endometrial thickness is 0.6 cm. Nabothian cysts in the cervix. Limited visualization of bilateral ovaries due to bowel gas. Bilateral ovaries are grossly unremarkable. Right ovary measures 2.4 x 2.4 x 2.2 cm, volume 6.6 mL. Left ovary measures 2.9 x 1.1 x 1.4 cm, volume 2.3 mL. US/US pelvic and transvaginal IMPRESSION: 1. Posterior uterine 2.3 cm heterogeneous mass is stable, likely a fibroid. 2. Endometrial thickness is 0.6 cm. Small amount of fluid within the endometrial cavity. Correlation with menstrual history recommended to determine further management. 3. Bilateral ovaries are grossly unremarkable, although visualization limited due to bowel gas.
== END 2023-04-05 12:51 | disposition home or self-care (01) ==
LOC: HO.US 12:50
PROVIDERS: PCP Nurse Practitioner Family; Visit Provider Nurse Practitioner Family
DX: C53.9 Malignant neoplasm of cervix uteri, unspecified (principal); N92.6 Irregular menstruation, unspecified; Z85.41 Personal history of malignant neoplasm of cervix uteri; Z86.018 Personal history of other benign neoplasm
CPT/HCPCS: 76830; 76856

== ENCOUNTER → 2023-04-21 14:41 | Outpatient (BNVA) | payer OTHER, SELFPAY | PROVIDERS: PCP Nurse Practitioner Family; Visit Provider Advanced Practice Midwife | DX: N92.6 Irregular menstruation, unspecified (principal); D25.9 Leiomyoma of uterus, unspecified; H00.13 Chalazion right eye, unspecified eyelid; H00.16 Chalazion left eye, unspecified eyelid; Z85.41 Personal history of malignant neoplasm of cervix uteri | CPT/HCPCS: 99212 ==

== ENCOUNTER 2023-04-21 14:50 | Outpatient (AMB) | payer OTHER, SELFPAY ==
--- NOTE | 2023-04-21 14:47 | A.OFFVIS_ITS ---
Intake Vital Signs 04/21/23 14:50 Height 5 ft 1 in Weight 206 lb BMI 38.9 BP 118/80 Intake Visit Reasons: Ultra sound follow up Intake Note: 02/25 lgsil 2 hgsil 11/27 colpo cin1 15 neg 03/31 hgsil +hpv 05/01 colpo lottie 1 05/31 Leep cin3 12/29/21 colpo (for hx cervical ca) Client Onboarding Analyst Required: Yes Client Onboarding Analyst Language: Yakut Information Interpreted: non-clinical & clinical Allergies No Known Allergies Allergy (Verified 04/21/23 14:50) Is last menstrual period known: Yes Last menstrual period: 03/29/23 HPI Ultra sound follow up HPI Details Patient is here to discuss her ultrasound results and she wants to review all her other results as well. She says her periods have been fine. She has had a tubal ligation and that is which she uses for control she is not having any problems at all. She went to the emergency room when her eyes were more uncomfortable full and they gave her erythromycin ointment and it seems to be helping with the inflammation of the growths on her eyelid. [facility] Medical History (Updated 04/21/23 @ 15:51 by Melania Chadwick CNM) Cervical cancer, FIGO stage IA1 Encounter to establish care Hx of abnormal cervical Pap smear Lyme disease Surgical History (Updated 04/21/23 @ 15:53 by Melania Chadwick CNM) H/O LEEP History of cryosurgery Hx of section Hx of cholecystectomy Hx of tubal ligation Family History Mother Hypertension Father No problems noted. Social History (Updated 03/12/23 @ 13:56 by ANIYA Noguera) Housing: Apartment Alcohol intake: current Alcohol intake frequency: holidays/special occasions only Patient Tobacco Use Status: Current everyday Tobacco user Cigarettes Per Day: 4 e-Cigarette/Vaping Use: Never Used service: No Current occupational status: employed Current occupation: [employer] Sexual orientation: Straight/Heterosexual Cognitive needs: No Hearing needs: No Vision needs: No Female Reproductive History Menstrual Age of Menarche: 8 Date of last menstrual period: 03/29/23 Date of last pap smear: 03/12/23 (neg pap and hpv) History of abnormal pap smear: Yes (05/31 Leep lottie 3 see intake note) Physical Exam Vital Signs: Last Vital Signs BP 118/80 04/21/23 14:50 BMI result Body Mass Index 38.9 Results Reviewed Results Reviewed: Patient: Trina Campbell MR#: [id number] : 1985 Acct:[id number] Age/Sex: 38 / F ADM Date: 04/05/23 Loc: HO.US Attending Dr: Ashley Dumont PERSONAL CARE ASSISTANT Ordering Physician: Melania Chadwick CNM Date of Service: 04/05/23 Procedure(s): US pelvic and transvaginal Accession Number(s): [id number] cc: Melania Chadwick CNM~ EXAMINATION:? US PELVIS CLINICAL INFORMATION:? Malignant neoplasm of cervix, last menstrual period one week ago, vaginal bleeding. COMPARISON: 10/03/2020. TECHNIQUE: Ultrasound of the pelvis is performed using both transabdominal and transvaginal transducers along with Doppler. Transvaginal imaging is performed due to inadequate visualization transabdominally. FINDINGS: Uterus: The uterus is anteverted and measures 8.3 x 5.0 x 6.7 cm. There is a 2.2 x 1.6 x 1.9 cm posterior fibroid previously measured 2 x 2 x 1.7 cm. Endometrial thickness is 0.6 cm. Nabothian cysts in the cervix. Limited visualization of bilateral ovaries due to bowel gas. Bilateral ovaries are grossly unremarkable. Right ovary measures 2.4 x 2.4 x 2.2 cm, volume 6.6 mL. Left ovary measures 2.9 x 1.1 x 1.4 cm, volume 2.3 mL. US/US pelvic and transvaginal IMPRESSION: ? 1. Posterior uterine 2.3 cm heterogeneous mass is stable, likely a fibroid. ? 2. Endometrial thickness is 0.6 cm. Small amount of fluid within the endometrial cavity. Correlation with menstrual history recommended to determine further management. ? 3. Bilateral ovaries are grossly unremarkable, although visualization limited due to bowel gas. Dictated By: Kiara Medel MD Signed By: <Electronically signed by Kiara Medel MD in OV> 04/06/23 1306 DD/ 1317 TD/TT:? Education Spec: Name:?Trina Campbell Age/Sex: 38/F Attending: Melania Chadwick CNM : 1985 Submitted by: Melania Chadwick CNM Copies to: Marline Carlos MR #: [id number] ? Status: DEP REF Collected: 03/12/23 Location: [facility] Received: 03/16/23 Interpretation Satisfactory for evaluation. Coccobacilli consistent with shift in vaginal eliel. Negative for intraepithelial lesion or malignancy. ?HPV mRNA E6/E7:? NOT DETECTED This assay detects E6/E7 viral messenger RNA (mRNA) from 14 high-risk HPV types (16, 18, 31, 33, 35, 39, 45, 51, 52, 56, 58, 59, 66, 68) HPV testing performed by [facility] [employer] [facility], [place], [place].? See reference laboratory pion of the EMR for entire report. Clinical Information LMP: 03/01/23 Previous PAP test: 11/18/21, WNL Material Received ThinPrep-Cervical Copies To ?? Melania Chadwick CNM ?? [address] [facility] [address] ?? [place] [address] ?? [phone] ?? Marline Carlos ?? [address] [facility] [address] ?? [place] ?? [phone] Electronically Signed By: EMILE Begum (ASCP) ? 04/06/23 1228 The Pap Test is a screening procedure with the inherent possibility of both false negative and false positive results.? Results should be interpreted in the context of historic and current clinical finding Assessment & Plan Assessment & Plan (1) Irregular menstruation, unspecified: Code(s): N92.6 - Irregular menstruation, unspecified (2) Chalazion of both eyes: Code(s): H00.13 - Chalazion right eye, unspecified eyelid; H00.16 - Chalazion left eye, unspecified eyelid (3) Fibroid uterus: Comment: Stable Code(s): D25.9 - Leiomyoma of uterus, unspecified (4) History of cervical cancer: Comment: Stage a 1 in 2017 with less than 1 mm from endocervical margin and less than 1 mm greater dimension and depths since then multiple negative co testing ; 03/16/2023 Pap is negative with negative HPV. Code(s): Z85.41 - Personal history of malignant neoplasm of cervix uteri Plan I reviewed all of her results with her and reviewed her previous ultrasound and her most recent ultrasound and reviewed how the measurements for the fibroid are essentially about the same. Additionally I reviewed all her other testing which was also negative with the exception of the Gardnerella which she treated. She is doing well and she feels like her eyes are little bit better with the use of the erythromycin ointment but her appointment to hopefully get the masses xiang deborah isn't until May. We will see her yearly for her annual and Pap. Coding Level of Care Code Est Pt Level 3 (37088) Diagnoses Irregular menstruation, unspecified N92.6 Chalazion of both eyes H00.13; H00.16 Fibroid uterus D25.9 History of cervical cancer Z85.41
[2023-04-21 14:50] VITALS: BP 118/80; BMI 38.9
== END 2023-04-21 15:51 | disposition home or self-care (01) ==
PROVIDERS: PCP Nurse Practitioner Family; Visit Provider Advanced Practice Midwife
DX: N92.6 Irregular menstruation, unspecified (principal); H00.13 Chalazion right eye, unspecified eyelid; H00.16 Chalazion left eye, unspecified eyelid; D25.9 Leiomyoma of uterus, unspecified; Z85.41 Personal history of malignant neoplasm of cervix uteri
CPT/HCPCS: 99213

== ENCOUNTER 2023-05-25 14:43 | Emergency (ER) | payer OTHER, SELFPAY ==
[2023-05-25 16:52] VITALS: BP 121/50; PULSE 73; RESP 18; TEMP 36.1; O2SAT 100; BMI 38.8
--- NOTE | 2023-05-25 17:01 | ED.BACK ---
HPI - Back Pain/Injury General Chief Complaint: Back Pain/Injury Stated Complaint: back pain Time Seen by Provider: 05/25/23 18:10 Source: patient Mode of arrival: ambulatory Limitations: no limitations History of Present Illness HPI Narrative: patient comes to the emergency room complaining of lower back pain on the left side it radiates towards the bottom of the left leg with certain movements. Patient denies any recent falls, trauma, heavy lifting. Patient denies any urinary/fecal incontinence/ retention. Patient states that this morning around Seven a.m., she woke up with the pain. throughout the day, the pain has gradually been getting worse with movement. Patient denies dysuria hematuria, denies flank pain. No fever chills Related Data Previous Rx's Medication Instructions Recorded cyclobenzaprine 10 mg tablet 10 mg PO TID PRN muscle spasm #10 05/25/23 tabs ketorolac 10 mg tablet 10 mg PO TID PRN pain #10 tabs 05/25/23 Allergies Allergy/AdvReac Type Severity Reaction Status Date / Time No Known Allergies Allergy Verified 04/21/23 14:50 Review of Systems Review of Systems: ?Constitutional : No Weight loss, No Fever, No Chills, No Night Sweats, No Fatigue, No Malaise ENT/Mouth : No Hearing loss, No Ear Pain, No Nasal Congestion, No Sinus Pain, No Hoarseness, No sore throat, No Rhinorrhea, No Swallowing Difficulty Eyes: No Eye Pain, No Swelling, No Redness, No Foreign Body, No Discharge, No Vision Changes Cardiovascular : No Chest Pain, No SOB, No Dyspnea on Exertion, No Orthopnea, No Edema, No Palpitations Respiratory : No Cough, No Sputum, No Wheezing, No Smoke Exposure, No Dyspnea Gastrointestinal : No Nausea, No Vomiting, No Diarrhea, No Constipation, No abdominal Pain, No Hematochezia, No Melena Genitourinary : no irregular bleeding, No Dysuria, No Urinary Frequency, No Hematuria, No Urinary Incontinence, No Urgency, No Flank Pain, No Urinary Flow Changes, No Hesitancy Musculoskeletal :? ?Complaining of left-sided lower back pain radiating towards the left like:No joint pain, No Myalgias, No Joint Swelling Skin : No Skin Lesions, No rash Neuro : No Weakness, No Numbness, No Paresthesias, No Loss of Consciousness, No Dizziness, No Headache Psych : No Anxiety/Panic, No Depression, No SI/HI/AH/VH, No Social Issues, Heme/Lymph: No Bruising, No Bleeding,No Lymphadenopathy Endocrine : No Polyuria, No Polydipsia, No Temperature Intolerance [facility] Past Medical History Medical History Cervical cancer, FIGO stage IA1 Encounter to establish care Lyme disease Hx of abnormal cervical Pap smear Surgical History H/O LEEP Hx of section History of cryosurgery Hx of tubal ligation Hx of cholecystectomy Family History Family History Mother Hypertension Father No problems noted. Social History Social History (Updated 03/12/23 @ 13:56 by ANIYA Noguera) Housing: Apartment Alcohol intake: current Alcohol intake frequency: holidays/special occasions only Patient Tobacco Use Status: Current everyday Tobacco user Cigarettes Per Day: 4 e-Cigarette/Vaping Use: Never Used Advance Directives: No Advance Directives Information Provided: No service: No Current occupational status: employed Current occupation: [employer] Sexual orientation: Straight/Heterosexual Cognitive needs: No Hearing needs: No Vision needs: No Physical Exam Vital Signs: Vital Signs: Last Vital Signs Temp 96.9 F 05/25/23 16:52 Pulse 73 05/25/23 16:52 Resp 18 05/25/23 16:52 BP 121/50 L 05/25/23 16:52 Pulse Ox 100 05/25/23 16:52 O2 Del Method Room Air 05/25/23 16:52 BMI result Body Mass Index 38.8 Const: Other: ?Appearance: Alert.? Oriented X3.? No acute distress.?? Eyes: Pupils equal, round and reactive to light.? ENT: Pharynx normal.? Neck: Normal inspection.? Neck supple. No lymph nodes noted. No crepitus CVS: Normal heart rate and rhythm.? Pulses normal. Normal S1 and S2 Respiratory: No respiratory distress.? Breath sounds normal. No Wheezing. No rales? Abdomen: Soft and nontender. No rigidity. No distention.? Skin: Skin warm and dry.? Normal skin color.? Normal skin turgor.? ?back:? Positive straight leg raise test on the left Extremities: No lower extremity edema. No Lacerations. No Rash Neuro: Oriented X 3.? No motor deficit.? No sensory deficit. Moving all extremities. No slurred speech. CN 2 through 12 grossly intact Psych: calm, cooperative, normal affect Course Course Course Narrative: This is an RME: Additional HPI, ROS, PE not included below will be deferred to primary provider. This is a 38-year-old female presenting to emergency department with complaints of low back pain radiating into her left leg since Wednesday. Denies any recent trauma or injury. She has been taking Motrin which has provided her without any relief. Tenderness palpation along the lumbar spine. Positive straight leg raise on the left. No urinary symptoms. Vital signs stable. Further ER evaluation needed, Plan: Lumbar x-rays ordered Medical Decision Making Medical Decision Making [facility] Narrative: - my interpretation of lumbar spine x-rays: No fracture, normal alignment - discussed with the patient she likely has sciatica versus a herniated disc. Patient will likely need physical therapy and possibly an MRI, patient will follow-up with the primary care physician. - Patient has normal strength in legs, cauda equina not suspected - patient was given a dose of IM Toradol and Decadron Differential Diagnosis Differential Diagnoses: The differential diagnosis associated with the presentation includes ( contusion, concussion, musculoskeletal pain, pulled muscle, sciatica, herniated disc) Discharge Plan Discharge Clinical Impression: Sciatica Patient Disposition: Home, Self-Care Instructions: Lumbar Radiculopathy (ED), Lower Back Exercises (ED) Additional Instructions: ?Please follow-up with your primary care physician tomorrow.? If you have any worsening or new symptoms, please return to the emergency room or call 911 Prescriptions: New ketorolac 10 mg tablet 10 mg PO TID PRN (Reason: pain) Qty: 10 0RF Rx Instructions: unit take this medication with ibuprofen /NSAID cyclobenzaprine 10 mg tablet 10 mg PO TID PRN (Reason: muscle spasm) Qty: 10 0RF Stand Alone Forms: Work/School Release
[2023-05-25 18:45] VITALS: BP 118/54; PULSE 73; RESP 18; TEMP 36.4; O2SAT 100
--- NOTE | 2023-05-25 18:59 | PC.NURSE ---
pt medicated per OCT for 10/10 back pain.
== END 2023-05-25 19:00 | disposition home or self-care (01) ==
PROVIDERS: Emergency Provider Emergency Medicine; PCP Nurse Practitioner Family
DX: M54.42 Lumbago with sciatica, left side (principal); M79.605 Pain in left leg; F17.200 Nicotine dependence, unspecified, uncomplicated; Z71.6 Tobacco abuse counseling
CPT/HCPCS: 72100; 96372; 99283; 99284; J1100; J1885

== ENCOUNTER 2023-06-15 10:05 | Emergency (ER) | payer OTHER, SELFPAY ==
[2023-06-15 10:20] VITALS: PULSE 93; RESP 18; TEMP 36.6; O2SAT 99; BMI 38.8
--- NOTE | 2023-06-15 11:18 | ED_ITS ---
HPI - Eye Problem General Chief complaint: Eye Problems Stated complaint: R Eye Infection ? Bite Time Seen by Provider: 06/15/23 10:48 Source: patient and RN notes reviewed Mode of arrival: ambulatory Limitations: no limitations History of Present Illness HPI Narrative: This is a 38-year-old Bengali-speaking female presenting to the emergency department due to right eye upper eyelid swelling x2 days. Patient denies any recent trauma or injury. She states that she noticed slight swelling yesterday and was applying warm compresses to her eye but states that she felt as though her symptoms were worsening. She does not wear contact lenses. Denies eye pain, foreign body sensation or changes in her vision. She reports some tearing from her eye. Endorses slight headache. No fevers or chills. No other com plaints or concerns at this time. Duration: constant Mechanism: none Associated symptoms: headache Treatments Prior to Arrival: none Related Data Previous Rx's Medication Instructions Recorded cyclobenzaprine 10 mg tablet 10 mg PO TID PRN muscle spasm #10 05/25/23 tabs ketorolac 10 mg tablet 10 mg PO TID PRN pain #10 tabs 05/25/23 erythromycin 5 mg/gram (0.5 %) eye 1 appl ophthalmic-Right TID 7 days 06/15/23 ointment #3.5 grams Allergies Allergy/AdvReac Type Severity Reaction Status Date / Time No Known Allergies Allergy Verified 06/15/23 10:19 Review of Systems Review of Systems: Yes all other systems are reviewed and are negative PMFSH Past Medical History Attestation statement: The following information was validated with the patient. Medical History Cervical cancer, FIGO stage IA1 Encounter to establish care Lyme disease Hx of abnormal cervical Pap smear Surgical History H/O LEEP Hx of section History of cryosurgery Hx of tubal ligation Hx of cholecystectomy Family History Family History Mother Hypertension Father No problems noted. Social History Social History Housing: Apartment Alcohol intake: current Alcohol intake frequency: holidays/special occasions only Patient Tobacco Use Status: Current everyday Tobacco user Cigarettes Per Day: 4 e-Cigarette/Vaping Use: Never Used Advance Directives: No service: No Current occupational status: employed Current occupation: [employer] Sexual orientation: Straight/Heterosexual Cognitive needs: No Hearing needs: No Vision needs: No Physical Exam Vital Signs: Vital Signs: Last Vital Signs Temp 97.8 F 06/15/23 10:20 Pulse 93 06/15/23 10:20 Resp 18 06/15/23 10:20 Pulse Ox 99 06/15/23 10:20 O2 Del Method Room Air 06/15/23 10:20 BMI result Body Mass Index 38.8 Const: Other: General: Awake, alert, and oriented X3. No acute distress. HEENT: Normal inspection, right upper eyelid is edematous mildly erythematous, no conjunctival injection. No discrete stye noted with eyelid inversion. Pupils are reactive. No pain with extraocular movements. Slight crusting noted to the upper eyelid and lashes CVS: Normal heart rate and rhythm. Pulses normal. Respiratory: No respiratory distress Skin: Warm, dry, no rashes noted to exposed skin. Normal skin color. Normal skin turgor. Extremities: Neuro: Oriented X 3. No motor deficit. No sensory deficit. Medical Decision Making Medical Decision Making MDM Narrative: 38-year-old female presenting to the emergency department for evaluation of right eyelid swelling and pain. She has been applying warm compresses to the area without any relief. Denies any vision changes, eye ball pain or foreign body sensation. On arrival, vitals within normal limits. Patient has edema and mild erythema noted to the right upper eyelid, consistent with blepharitis, differentials including a for itis, corneal and, periorbital and orbital cellulitis. Orbital cellulitis unlikely given no conjunctival injection, or pain with eye movements. Will obtain visual acuity. Discharge patient on erythromycin encourage warm compresses, educated on return precautions. Patient understands and agrees to plan. Differential Diagnosis Differential Diagnoses: The differential diagnosis associated with the presentation includes See above Discharge Plan Discharge Clinical Impression: Blepharitis Patient Disposition: Still a Patient Instructions: Blepharitis (ED) Additional Instructions: You came to the emergency department today due to eyelid swelling. He has something called blepharitis. This is inflammation and infection of your eyelid. It is important to use the topical antibiotic as prescribed. Warm compresses can help with your symptoms. Apply warm compresses 5-6 times per day. You may take Tylenol or ibuprofen as needed for pain. If any new or worsening symptoms occur including but not limited to fevers, chills, changes in your vision, eye pain worsening swelling or pain, please return for re-evaluation. Prescriptions: New erythromycin 5 mg/gram (0.5 %) ointment 1 appl ophthalmic-Right TID 7 Days Qty: 3.5 0RF No Action ketorolac 10 mg tablet 10 mg PO TID PRN (Reason: pain) Qty: 10 0RF Rx Instructions: unit take this medication with ibuprofen /NSAID cyclobenzaprine 10 mg tablet 10 mg PO TID PRN (Reason: muscle spasm) Qty: 10 0RF Stand Alone Forms: Work/School Release
== END 2023-06-15 12:11 | disposition home or self-care (01) ==
PROVIDERS: Emergency Provider Emergency Medicine; PCP Nurse Practitioner Family
DX: H01.001 Unspecified blepharitis right upper eyelid (principal); F17.210 Nicotine dependence, cigarettes, uncomplicated
CPT/HCPCS: 99282; 99283

== ENCOUNTER 2023-07-22 10:44 | Outpatient (AMB) | payer OTHER, SELFPAY ==
[2023-07-22 10:47] VITALS: BP 118/82; PULSE 86; O2SAT 99; BMI 38.4
--- NOTE | 2023-07-22 10:47 | A.OFFPC_ITS ---
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 Language: Swiss Allergies No Known Allergies Allergy (Verified 07/22/23 10:55) Medication List - Last Reconciled 07/22/23 by DORINDA Mcdonald ketorolac 10 mg PO TID PRN Tobacco use date assessed: 07/22/23 Dental Screening Dental Screen Date: 07/22/23 Did you have a dental visit in the last 12 months?: Yes Did you have a dental problem in the last 6 months where you did not have access to dental care?: No Was dental information given to patient?: Patient has dentist HPI follow up/issues with eyes HPI Details Patient is a 38-year-old female who presents today with chalazion of both eyes for long time now - she was refer to Ophthalmology in the past although she reports she did not see them due to long wait line, will place new referral. She denies vision changes, denies lumps pains - will place new referral for an evaluation. Patient reports using warm compresses at home. In addition, patient reports right neck pain for long time now, pain slightly radiate to her right shoulder, denies injury. She also reports chronic low back pain, does not radiate to her legs, pain worse with activity. No changes in bowel/bladder, no numbness or tingling. Denies injury. Was seen in the emergency department sometime ago and was advised physical therapy. 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 [facility] Medical History Cervical cancer, FIGO stage IA1 Encounter to establish care Lyme disease Hx of abnormal cervical Pap smear Surgical History H/O LEEP Hx of section History of cryosurgery Hx of tubal ligation Hx of cholecystectomy Family History Mother Hypertension Father No problems noted. Social History (Reviewed 07/22/23 @ 11:01 by SHOBHA Mcdonald Housing: Apartment Alcohol intake: current Alcohol intake frequency: holidays/special occasions only Patient Tobacco Use Status: Current everyday Tobacco user Cigarettes Per Day: 4 e-Cigarette/Vaping Use: Never Used service: No Current occupational status: employed Current occupation: [employer] Sexual orientation: Straight/Heterosexual Cognitive needs: No Hearing needs: No Vision needs: No Female Reproductive History Menstrual Age of Menarche: 8 Questionnaire PHQ-9 Over the last 2 weeks, how often have you been bothered by any of the following problems? 1. Little interest or pleasure in doing things: not at all 2. Feeling down, depressed, or hopeless: not at all 3. Trouble falling or staying asleep, or sleeping too much: not at all 4. Feeling tired or having little energy: not at all 5. Poor appetite or overeating: not at all 6. Feeling bad about yourself - or that you are a failure or have let yourself or your family down: not at all 7. Trouble concentrating on things, such as reading the newspaper or watching television: not at all 8. Moving or speaking so slowly that other people could have noticed. Or the opposite - being so fidgety or restless that you have been moving around a lot more than usual: not at all 9. Thoughts that you would be better off or of hurting yourself in some way: not at all Total score: 0 Depression Screening Interpretation: Negative Depression Screening Done: Yes 44547 - PHQ-9 Billing: Yes Source: Developed by Drs. Christian Theodore, Karin Richardson, Julio Cesar Bowles and colleagues, with an educational ange from [employer]. Thrive Questionnaire Date Thrive assessed: 10/06/22 I am a: Patient What is your living situation today?: I have a steady place to live Within the past 12 months, did the food you bought not last and you didn't have the money to get more?: Never true Within the past 12 months, did you worry whether your food would run out before you got money to buy more?: Never true Currently or been in a relationship where the following occur: no concerns reported AUDIT C Alcohol Use Questionnaire (AUDIT-C) 1. How often do you have a drink containing alcohol?: 2-4 times a month 2. How many drinks containing alcohol do you have on a typical day when you are drinking?: 3 or 4 3. How often do you have six or more drinks on one occasion?: Never Total Score: 3 Score Reviewed/Action Taken: Yes ISSAC-7 AMB Questionnaire ISSAC-7 Date ISSAC - 7 assessed: 07/22/23 Source: Developed by Drs. Christian Theodore, Karin Richardson, Julio Cesar Bowles and colleagues, with an educational ange from [employer]. Review of Systems Const Denies body aches, Denies chills, Denies fever(s) and Denies headache(s) Eyes Reports as per HPI and Denies change in vision ENT Denies dizziness, Denies otalgia, Denies headache(s), Denies nasal discharge, Denies sinus pain and Denies sore throat Card Denies chest pain, Denies edema, Denies lightheadedness and Denies dyspnea Resp Denies cough, Denies dyspnea and Denies wheezing GI Denies abdominal pain, Denies constipation, Denies diarrhea, Denies nausea and Denies vomiting Denies dysuria Musc Reports back pain, Denies myalgias, Denies numbness and Denies tingling Skin/Breast Denies rash Neuro Denies dizziness, Denies headache(s), Denies numbness and Denies tingling Aller/Immun Denies wheezing Physical exam (Primary Care) Vital Signs: Last Vital Signs Pulse 86 07/22/23 10:47 BP 118/82 07/22/23 10:47 Pulse Ox 99 07/22/23 10:47 Oxygen Delivery Method Room Air 07/22/23 10:47 BMI result Body Mass Index 38.4 Tobacco/Smoking Status: Tobacco use Status Tobacco use date assessed 07/22/23 07/22/23 10:54 Patient Tobacco Use Status Current everyday Tobacco 07/22/23 10:54 e-Cigarette/Vaping Use Never Used 07/22/23 10:54 PHQ-9: PHQ-9 Score PHQ-9: Total score 0 07/22/23 10:56 Depression Screening Interpretation: Negative Thrive Assessment: Date of Thrive Assessment Date Thrive assessed 10/06/22 07/22/23 10:54 Currently or been in a relationship where the following occur: no concerns reported Const General: cooperative and no acute distress Orientation/consciousness: patient oriented x3 HENMT Head: Yes normocephalic and Yes atraumatic Face and sinus: Yes sinuses nontender Mouth: oropharynx normal and moist mucous membranes Throat: Yes posterior oropharynx normal Eyes Other: Bilateral upper eyelids with nontender lumps about 5 mm in diameter, no discharge, no signs of infection noted Conjunctivae: conjunctivae normal Sclerae: sclerae normal Pupils: Equal, round and reactive pupils present EOM: EOMs intact bilaterally Neck Neck: Yes normal visual inspection, Yes full ROM and Yes no lymphadenopathy Resp Effort & Inspection: normal respiratory effort and able to speak in complete sentences Auscultation: clear to auscultation bilaterally, no crackles, no rales, no rhonchi and no wheezes Cardio Rate: regular rate Rhythm: regular rhythm Heart sounds: S1 normal heart sound present and S2 normal heart sound present GI Auscultation: normal bowel sounds Back/Spine/Pelvis Cervical Spine: cervical ROM normal, cervical muscular tenderness (Right) and No Cervical spine tenderness Thoracic/Lumbar Spine: paraspinal muscle tenderness (Bilateral lumbar aspect), No thoracic spinal tenderness and lumbar spinal tenderness Neuro General: patient oriented x3 Cranial nerves: Yes Equal, round and reactive pupils present Gait exam (Neuro): Normal gait present Extrem General: Yes full ROM and No edema Assessment and Plan Assessment & Plan (1) Lower back pain: Code(s): M54.50 - Low back pain, unspecified Plan: See HPI and physical exam for details. Physical therapy referral Start cyclobenzaprine 5 mg t.i.d. p.r.n.-educated about drowsiness Start ibuprofen every 8 hours p.r.n. Encouraged heating packs p.r.n. Follow-up in the office if no improvement after physical therapy Signs and symptoms reviewed when to notify provider or go to the emergency department (2) Chalazion of both eyes: Code(s): H00.13 - Chalazion right eye, unspecified eyelid; H00.16 - Chalazion left eye, unspecified eyelid Plan: Chalazion of both upper eyelids. Continue warm compresses TID prn. Ophthalmology referral for an evaluation and treatment. Signs and symptoms reviewed when to notify provider or go to the emergency department. Patient agreed with the plan (3) Neck pain: Code(s): M54.2 - Cervicalgia Plan: Same as above Orders: Orders PT Evaluation and Treatment Today M54.2 - Cervicalgia PT Evaluation and Treatment Today M54.50 - Low back pain, unspecified Medications: New cyclobenzaprine 5 mg PO TID PRN 15 tabs 0RF muscle spasm M54.2 - Cervicalgia ibuprofen 600 mg PO Q8H PRN 20 tabs 0RF pain M54.2 - Cervicalgia Discontinued ketorolac unit take this medication with ibuprofen /NSAID Discontinued Reason: Doctor's Order 10 mg PO TID PRN 10 tabs 0RF pain Coding Level of Care Code Est Pt Level 3 (55882) Diagnoses Lower back pain M54.50 Chalazion of both eyes H00.13; H00.16 Neck pain M54.2
== END 2023-07-22 11:23 | disposition home or self-care (01) ==
PROVIDERS: PCP Nurse Practitioner Family; Visit Provider Nurse Practitioner Family
DX: M54.50 Low back pain, unspecified (principal); H00.11 Chalazion right upper eyelid; H00.14 Chalazion left upper eyelid; M54.2 Cervicalgia; Z85.41 Personal history of malignant neoplasm of cervix uteri
CPT/HCPCS: 99213

== ENCOUNTER 2024-01-24 13:42 | Outpatient (AMB) | payer OTHER, SELFPAY ==
--- NOTE | 2024-01-24 13:53 | A.OFFPC_ITS ---
Vital Signs 01/24/24 13:54 Height 5 ft 1 in Weight 165 lb BMI 31.2 BP 120/80 Blood Pressure Location Lt brachial Position Sitting Intake Visit Reasons: pe Intake Note: Patient here for a physical exam Clerk Of Scales Required: No Accompanied by: Self / Same As Patient Allergies No Known Allergies Allergy (Verified 01/24/24 14:17) Medication List - Last Reconciled 01/24/24 by Lizzette Newby MD ibuprofen 600 mg PO Q8H PRN neomycin-polymyxin B-dexameth 3.5 mg/g-10,000 unit/g-0.1 % ophthalmic (eye) Tobacco use date assessed: 01/24/24 Dental Screening Dental Screen Date: 01/24/24 Did you have a dental visit in the last 12 months?: Yes Did you have a dental problem in the last 6 months where you did not have access to dental care?: No Was dental information given to patient?: Patient has dentist HPI HPI Comments History of Present Illness Details This is a 39-year-old female that comes for her physical exam. Mammogram will be ordered. Last Pap smear was 2022 and was normal. She has intentionally lose weight by doing diet and exercise. [facility] Medical History Cervical cancer, FIGO stage IA1 Encounter to establish care Lyme disease Hx of abnormal cervical Pap smear Surgical History H/O LEEP Hx of section History of cryosurgery Hx of tubal ligation Hx of cholecystectomy Family History Mother Hypertension Father No problems noted. Social History Housing: Apartment Alcohol intake: current Alcohol intake frequency: holidays/special occasions only Patient Tobacco Use Status: Current everyday Tobacco user Tobacco use type: Cigarette Cigarettes Per Day: 4 e-Cigarette/Vaping Use: Never Used Second Hand Smoke Exposure: No service: No Current occupational status: employed Current occupation: [employer] Current occupational exposures/hazards: No Sexual orientation: Straight/Heterosexual Cognitive needs: No Hearing needs: No Vision needs: No Female Reproductive History Menstrual Age of Menarche: 8 Questionnaire PHQ-9 Over the last 2 weeks, how often have you been bothered by any of the following problems? 1. Little interest or pleasure in doing things: not at all 2. Feeling down, depressed, or hopeless: not at all 3. Trouble falling or staying asleep, or sleeping too much: not at all 4. Feeling tired or having little energy: not at all 5. Poor appetite or overeating: not at all 6. Feeling bad about yourself - or that you are a failure or have let yourself or your family down: not at all 7. Trouble concentrating on things, such as reading the newspaper or watching television: not at all 8. Moving or speaking so slowly that other people could have noticed. Or the opposite - being so fidgety or restless that you have been moving around a lot more than usual: not at all 9. Thoughts that you would be better off or of hurting yourself in some way: not at all Total score: 0 Depression Screening Interpretation: Negative Depression Screening Done: Yes 22997 - PHQ-9 Billing: Yes Source: Developed by Drs. Christian Theodore, Karin Richardson, Julio Cesar Bowles and colleagues, with an educational ange from [employer]. Thrive Questionnaire Date Thrive assessed: 01/24/24 I am a: Patient What is your living situation today?: I have a steady place to live Within the past 12 months, did the food you bought not last and you didn't have the money to get more?: Never true Within the past 12 months, did you worry whether your food would run out before you got money to buy more?: Never true Do you have trouble paying for medicines?: No Do you have trouble getting transportation to medical appointments?: No Do you have trouble paying your heating and electricity bill?: No Do you have trouble taking care of your child, family member or friend?: No Do you have trouble with day-to-day activities such as bathing, preparing meals, shopping, managing finances, etc.?: No Are you currently unemployed and looking for a job?: No Are you interested in more education?: No Please select the resources that you would like help with: None Currently or been in a relationship where the following occur: no concerns reported THRIVE Score: 0 AUDIT C Alcohol Use Questionnaire (AUDIT-C) 1. How often do you have a drink containing alcohol?: Monthly or less 2. How many drinks containing alcohol do you have on a typical day when you are drinking?: 1 or 2 3. How often do you have six or more drinks on one occasion?: Never Total Score: 1 Score Reviewed/Action Taken: No ISSAC-7 AMB Questionnaire ISSAC-7 Date ISSAC - 7 assessed: 01/24/24 Feeling nervous, anxious, or on edge: 0 = Not at all Not being able to stop or control worryin = Not at all Worrying too much about different things: 0 = Not at all Trouble relaxin = Not at all Being so restless that it is hard to sit still: 0 = Not at all Becoming easily annoyed or irritable: 0 = Not at all Feeling afraid as if something awful might happen: 0 = Not at all Total ISSAC-7 score (0-4 normal; 5-9 mild; 10-14 moderate; 15-21 severe): 0 Source: Developed by Drs. Christian Theodore, Karin Richardson, Julio Cesar Bowles and colleagues, with an educational ange from [employer]. ISSAC-7 Assessment Billing ISSAC-7 Assessment Tool: ISSAC-7 Assessment 67812 Review of Systems Const All systems reviewed & are unremarkable except as noted in HPI and below Card Denies chest pain at rest, Denies chest pain with activity, Denies edema, Denies irregular heart rhythm, Denies claudication, Denies dyspnea, Denies dyspnea on exertion, Denies orthopnea, Denies paroxysmal nocturnal dyspnea and Denies slow heart rate Resp Denies cough, Denies dyspnea and Denies dyspnea on exertion Neuro Denies behavioral changes, Denies confusion and Denies lack of coordination Psych Denies behavioral changes and Denies confusion Physical exam (Primary Care) Vital Signs: Last Vital Signs BP 120/80 01/24/24 13:54 BMI result Body Mass Index 31.2 BMI Assessment/Plan discussion: High BMI High, discussed plan: lifestyle, weight reduction, dietary, physical activity and alcohol moderation Tobacco/Smoking Status: Tobacco use Status Tobacco use date assessed 01/24/24 01/24/24 13:58 Patient Tobacco Use Status Current everyday Tobacco 01/24/24 13:58 Tobacco use type Cigarette 01/24/24 13:58 e-Cigarette/Vaping Use Never Used 01/24/24 13:58 Are you ready to quit: Yes Tobacco cessation counseling provided: Yes Items discussed: [employer] Relapse Prevention: discussed the importance of a supportive environment, discussed extending NRT, discussed negative mood or depression after quitting, weight gain after smoking is common and discussed dietary, exercise and/or li festyle changes Number of minutes spent counselin CPT code: Less than 3 minutes PHQ-9: PHQ-9 Score PHQ-9: Total score 0 01/24/24 14:00 Depression Screening Interpretation: Negative Thrive Assessment: Date of Thrive Assessment Date Thrive assessed 01/24/24 01/24/24 14:00 Currently or been in a relationship where the following occur: no concerns reported Const General: No confusion Orientation/consciousness: patient oriented x3 and No confusion HENMT Head: Yes normal to inspection, Yes normocephalic and Yes atraumatic Ears: external ears normal Eyes Other: bilateral upper eyelid stye Eyelids: Yes eyelids normal Conjunctivae: conjunctivae normal Neck Neck: Yes normal visual inspection and Yes supple Resp Effort & Inspection: normal respiratory effort Auscultation: clear to auscultation bilaterally Cardio Jugular venous distension: no JVD Rate: regular rate Rhythm: regular rhythm Heart sounds: S1 normal heart sound present and S2 normal heart sound present GI Inspection: Yes normal to inspection Palpation (GI): Soft to palpation and nontender Auscultation: normal bowel sounds Skin General skin exam: no rashes or lesions noted Neuro General: patient oriented x3, no focal motor deficits and No confusion Extrem General: Yes full ROM Psych Appearance: grossly normal Assessment and Plan Assessment & Plan (1) Physical exam: Code(s): Z00.00 - Encounter for general adult medical examination without abnormal findings Plan: Repeat in a year. Orders: Orders MM screening mammo BI Today Z12.31 - Encounter for screening mammogram for malignant neoplasm of breast Medications: New nabumetone 750 mg PO BID 30 days PRN 60 tabs 0RF pain Discontinued ibuprofen Discontinued Reason: Patient Completed Course 600 mg PO Q8H PRN 20 tabs 0RF pain M54.2 - Cervicalgia Coding Level of Care Code Est Pt Prev Care 40-64y(70222) Diagnoses Physical exam Z00.00 Additional Codes ISSAC-7 Assessment Billing - ISSAC-7 Assessment Tool: ISSAC-7 Assessment 11147 ([id number]) Time Spent (min) 31
[2024-01-24 13:54] VITALS: BP 120/80; BMI 31.2
== END 2024-01-24 16:04 | disposition home or self-care (01) ==
PROVIDERS: PCP Nurse Practitioner Family; Visit Provider Internal Medicine
DX: Z00.00 Encounter for general adult medical examination without abnormal findings (principal)
CPT/HCPCS: 99396

== ENCOUNTER 2024-02-14 14:18 | Outpatient (REF) | payer OTHER, SELFPAY | END 2024-02-14 14:19 | disposition home or self-care (01) | LOC: HO.MAMMO 14:18 | PROVIDERS: PCP Internal Medicine; Visit Provider Internal Medicine | DX: Z12.31 Encounter for screening mammogram for malignant neoplasm of breast (principal) | CPT/HCPCS: 77063; 77067 ==

== ENCOUNTER → 2024-02-14 14:30 | Outpatient (BNV) | payer OTHER, SELFPAY | PROVIDERS: PCP Internal Medicine; Visit Provider Radiology Diagnostic Radiology | DX: Z12.31 Encounter for screening mammogram for malignant neoplasm of breast (principal) | CPT/HCPCS: 77063; 77067 ==